=== PATIENT | female | born 1985 | race Caucasian/White ===

== ENCOUNTER 2016-07-14 18:00 | Emergency (ER) | payer BC ==
[~2016-07-14] VITALS: Ht 162.6 cm; Wt 59.1 kg
[~2016-07-14 18:00] MED LIST: BIRTH CONTROL PILL; PRENATAL VITAMI1 TAB PO; SYNTHROID0.05 MG/TA PO; ZOFRAN ODT4 MG PO; ZOLOFT 100MG100 MG PO
[2016-07-14 18:04] VITALS: BP 114/71; TEMP 98.1
[2016-07-14 21:38] VITALS: PULSE 70
== END 2016-07-14 21:38 | disposition home or self-care (01) ==
LOC: COL.ER 18:00
DX: O20.0 Threatened abortion (principal); O26.891 Other specified pregnancy related conditions, first trimester; Z67.91 Unspecified blood type, Rh negative; Z3A.13 13 weeks gestation of pregnancy
CPT/HCPCS: J2791

== ENCOUNTER 2017-01-05 18:16 | Inpatient (IN) | payer BC ==
[2017-01-05] VITALS (13 sets, daily range): BP systolic 98–121; BP diastolic 55–71; PULSE 68–89; TEMP 97.9–98.5
[~2017-01-05] VITALS: Ht 162.6 cm; Wt 75.5 kg
[2017-01-05] MEDS ORDERED: PRENATAL1 TA7 PO (18:39)
[2017-01-05 21:00] LABS: BASO % 0.3 % (0.0-2.0); EOS # 0.1 (0.0-0.7); EOS % 0.7 % (0-4.0); GRAN # 7.4 (1.4-6.5); GRAN % 67.4 % (42.2-75.2); HEMATOCRIT 37.6 % (37.0-47.0); HEMOGLOBIN 12.8 g/dl (12.5-16.0); LYMPH # 2.4 (1.2-3.4); MEAN CELL VOLUME 92 fl (80.0-100.0); MEAN CORPUSCULAR HEMOGLOBIN 31 pg (27.0-31.0); MEAN CORPUSCULAR HGB CONC 34 g/dl (33.0-37.0); MEAN PLATELET VOLUME 11.4 fl (7.4-10.4); MONO % 8.8 % (1.7-9.3); PLATELET COUNT 172 K/mm3 (130-400); RED BLOOD COUNT 4.08 M/mm3 (4.10-5.30); WHITE BLOOD COUNT 10.9 K/mm3 (4.8-10.8)
[2017-01-06] VITALS (15 sets, daily range): BP systolic 104–130; BP diastolic 55–73; PULSE 66–101; TEMP 97.3–98.7
[2017-01-07 08:55] VITALS: BP 110/77; PULSE 78; TEMP 98.3
[2017-01-07] MEDS ORDERED: IBU800 M1 PO (10:22)
== END 2017-01-07 11:55 | disposition home or self-care (01) | DRG 775 ==
LOC: LDRO 18:16 → LDR 20:30 → OB 01-06 02:45 → LDRO 01-18 13:26
PROVIDERS: Student in an Organized Health Care Education/Training Program
PROC: 10E0XZZ Delivery of Products of Conception, External Approach (ICD-10-PCS; principal; 2017-01-06)
PROC: 0W8NXZZ Division of Female Perineum, External Approach (ICD-10-PCS; 2017-01-06)
DX: O36.0130 Maternal care for anti-D [Rh] antibodies, third trimester, not applicable or unspecified (principal); O99.284 Endocrine, nutritional and metabolic diseases complicating childbirth; E03.9 Hypothyroidism, unspecified; O76 Abnormality in fetal heart rate and rhythm complicating labor and delivery; O69.1XX0 Labor and delivery complicated by cord around neck, with compression, not applicable or unspecified; Z3A.38 38 weeks gestation of pregnancy; Z37.0 Single live birth
CPT/HCPCS: J2590; J7120

== ENCOUNTER → 2017-01-09 | Outpatient (CLI) | payer BC ==
[~2017-01-09] MED LIST changes: +IBU800 M1 PO; +PRENATAL1 TA7 PO
== END ==
LOC: LAC 14:06
DX: Z39.1 Encounter for care and examination of lactating mother (principal); Z71.89 Other specified counseling

== ENCOUNTER → 2017-01-11 | Outpatient (CLI) | payer BC | LOC: LAC 11:01 | DX: Z71.89 Other specified counseling (principal) ==

== ENCOUNTER → 2017-01-15 | Outpatient (CLI) | payer BC | LOC: OLC 11:08 | DX: Z39.1 Encounter for care and examination of lactating mother (principal); Z71.89 Other specified counseling ==

== ENCOUNTER → 2019-12-03 | Outpatient (CLI) | payer BC | LOC: COL.RAD 07:54 | DX: M25.552 Pain in left hip (principal) | CPT/HCPCS: A9585; J3301; Q9967 ==

== ENCOUNTER 2020-02-22 15:37 | Outpatient (RCR) | payer BC | END 2020-05-22 | disposition home or self-care (01) | LOC: MKS.ESL.PT | DX: M25.552 Pain in left hip (principal); Z98.890 Other specified postprocedural states ==

== ENCOUNTER 2020-05-23 08:45 | Outpatient (RCR) | payer BC | END 2020-05-29 | disposition home or self-care (01) | LOC: MKS.ESL.PT | DX: M25.552 Pain in left hip (principal); Z98.890 Other specified postprocedural states ==

== ENCOUNTER 2020-07-28 08:30 | Outpatient (RCR) | payer BC | END 2020-08-21 | disposition home or self-care (01) | LOC: MKS.ESL.PT | DX: Z98.890 Other specified postprocedural states (principal) | CPT/HCPCS: G0283-GP ==

== ENCOUNTER 2021-12-08 09:58 | Outpatient (RCR) | payer BC | END 2021-12-11 | disposition home or self-care (01) | LOC: PT.GENESIS | DX: M25.852 Other specified joint disorders, left hip (principal) ==

== ENCOUNTER 2022-02-20 08:15 | Outpatient (RCR) | payer BC | END 2022-03-13 | disposition home or self-care (01) | LOC: PT.GENESIS | DX: M25.552 Pain in left hip (principal); M25.551 Pain in right hip ==

== ENCOUNTER 2023-08-09 09:15 | Outpatient (RCR) | payer BC | END 2023-08-11 | disposition home or self-care (01) | LOC: PT.GENESIS | DX: M47.816 Spondylosis without myelopathy or radiculopathy, lumbar region (principal) ==